=== PATIENT | female | born 2005 | race Caucasian/White ===

== ENCOUNTER 2024-01-22 08:01 | Outpatient (CLI) | payer BC | END 2024-01-22 23:59 | disposition home or self-care (01) | LOC: RAD 08:01 | PROVIDERS: ATTEND Nurse Practitioner Obstetrics & Gynecology | DX: O09.93 Supervision of high risk pregnancy, unspecified, third trimester (principal); Z3A.32 32 weeks gestation of pregnancy | CPT/HCPCS: 76805 ==

== ENCOUNTER 2024-02-20 14:08 | Outpatient (CLI) | payer BC, MEDICAID | END 2024-02-20 23:59 | disposition home or self-care (01) | LOC: RAD 14:08 | PROVIDERS: ATTEND Physician Assistant | DX: O09.93 Supervision of high risk pregnancy, unspecified, third trimester (principal); Z3A.37 37 weeks gestation of pregnancy | CPT/HCPCS: 76805 ==